=== PATIENT | male | born 1980 | race Caucasian/White ===

== ENCOUNTER 2017-10-06 04:33 | Emergency (ER) | payer OTHER ==
--- NOTE | 2017-10-06 04:39 | ED Physician Documentation ---
PD HPI ABD PAIN - Stated complaint Stated Complaint: ABDOMINAL PAIN - History obtained from History obtained from: Patient - History of Present Illness Timing - onset: Enter time (22:00), Last night Timing - details: Abrupt onset, Waxing and waning Quality: Pain Location: Other (right mid-level back) Radiation: Right flank Improved by: Other (no ameliorating factors) Worsened by: Other (no exacerbating factors) Associated symptoms: No: Fever, Nausea, Vomiting, Diarrhea, Constipation Similar symptoms before: Diagnosis (similar to previous diverticulitis as well as renal colic) Recently seen: Not recently seen Review of Systems Constitutional: reports: Reviewed and negative Cardiac: reports: Reviewed and negative Respiratory: reports: Reviewed and negative GI: reports: Abdominal Pain. denies: Nausea, Vomiting : denies: Dysuria, Frequency, Hematuria Musculoskeletal: reports: Back pain PD PAST MEDICAL HISTORY - Past Medical History Cardiovascular: None Respiratory: None Endocrine/Autoimmune: None GI: Diverticulitis : Kidney stones HEENT: None Psych: Anxiety Musculoskeletal: None Derm: None - Past Surgical History Past Surgical History: Yes Ortho: Other - Present Medications Home Medications: Ambulatory Orders Medication Instructions Recorded Confirmed Tamsulosin [Flomax] 0.4 mg PO DAILY #7 capsule 10/06/17 oxyCODONE/ACET 5/325 [Percocet 5 1 - 2 each PO Q6H PRN #20 tablet 10/06/17 mg/325 mg] - Allergies Allergies/Adverse Reactions: Allergies Allergy/AdvReac Type Severity Reaction Status Date / Time No Known Drug Allergies Allergy Verified 10/06/17 04:51 - Social History Does the pt smoke?: No Smoking Status: Never smoker Does the pt have substance abuse?: No PD ED PE NORMAL - Vitals Vital signs reviewed: Yes - General General: Alert and oriented X 3, Well developed/nourished, Other (obvious painful distress with fluctuating intensity) - HEENT HEENT: Moist mucous membranes - Cardiac Cardiac: RRR, No murmur - Respiratory Respiratory: No respiratory distress, Clear bilaterally - Abdomen Abdomen: Soft, Non tender - Back Back: No CVA TTP - Derm Derm: Normal color, Warm and dry, No rash Results - Vitals Vitals: Vital Signs - 24 hr 10/06/17 10/06/17 10/06/17 04:35 05:18 06:05 Temperature 36.2 C L Heart Rate 71 61 73 Respiratory 24 16 18 Rate Blood Pressure 152/116 H 128/81 H 125/95 H O2 Saturation 99 99 99 10/06/17 10/06/17 10/06/17 06:25 06:40 07:41 Temperature Heart Rate 58 L 88 68 Respiratory 16 16 18 Rate Blood Pressure 125/95 H 145/99 H 128/90 H O2 Saturation 97 89 L 96 Oxygen O2 Source Room air Oxygen Flow Rate 2 - Labs Labs: Laboratory Tests 10/06/17 10/06/17 04:45 04:45 WBC 7.9 RBC 5.33 Hgb 15.1 Hct 45.5 MCV 85.3 MCH 28.3 MCHC 33.2 RDW 13.0 Plt Count 306 MPV 7.1 L Neut # 4.4 Lymph # 2.7 Weber # 0.6 Eos # 0.2 Baso # 0.1 Absolute Nucleated RBC 0.00 Nucleated RBC % 0.0 Sodium 137 Potassium 3.9 Chloride 102 Carbon Dioxide 26 Anion Gap 9.0 BUN 12 Creatinine 1.0 Estimated GFR (MDRD) 85 L Glucose 128 H Calcium 9.3 Total Bilirubin 0.4 AST 26 ALT 36 Alkaline Phosphatase 72 Total Protein 7.9 Albumin 4.6 Globulin 3.3 Albumin/Globulin Ratio 1.4 Lipase 19 L - Rads (name of study) CT A/P Radiology: Prelim report reviewed, See rad report PD MEDICAL DECISION MAKING - ED course Complexity details: reviewed results, re-evaluated patient, considered differential, d/w patient Departure - Departure Disposition: 01 Home, Self Care Clinical Impression: Renal colic Condition: Good Instructions: ED Stone Renal W Colic Follow-Up: Onelia Mann PA-C [Primary Care Provider] - (Call today to arrange for next available appointment. When you call, explain that you have been diagnosed with a kidney stone and ask if your doctor prefers to evaluate you or refer you to a urologist) Prescriptions: oxyCODONE/ACET 5/325 [Percocet 5 mg/325 mg] 1 - 2 each PO Q6H PRN #20 tablet PRN Reason: Pain Tamsulosin [Flomax] 0.4 mg PO DAILY #7 capsule Comments: In addition to the prescribed pain medication (oxycodone/acetaminophen), you can try pyridium and ibuprofen. Pyridium can help with some of the milder symptoms associated with a kidney stone. It usually turns the urine an orange color; this is normal. Ibuprofen is an anti-inflammatory (brand names include Advil and Motrin). You should use the ibuprofen if the oxycodone alone is not providing adequate pain relief. Do not take tylenol or any acetaminophen- containing products with the prescribed oxycodone/acetaminophen. Use the strainer to strain your urine until you follow-up or until you catch a stone. Forms: Activity restrictions Discharge Date/Time: 10/06/17 07:53
[2017-10-06] MEDS ORDERED: HYDROmorphone 1 MG/ML SYRINGE IVP STA ×2 (04:55→06:07)
[2017-10-06] MEDS ORDERED: ONDANSETRON 4 MG/2 ML VIAL IVP STA (04:55)
[2017-10-06] MEDS ORDERED: KETOROLAC 60 MG/2 ML VIAL IVP STA (04:57)
[2017-10-06 05:01] LABS: BASOPHILS # (AUTO) 0.1 10^3/uL (0.0-0.1); BASOPHILS % (AUTO) 0.8 %; EOSINOPHILS # (AUTO) 0.2 10^3/uL (0.0-0.7); EOSINOPHILS % (AUTO) 2.1 %; HGB - HEMOGLOBIN 15.1 g/dL (14.0-18.0); LYMPHOCYTES # (AUTO) 2.7 10^3/uL (1.5-3.5); LYMPHOCYTES % (AUTO) 34.2 %; MEAN CORPUSCULAR HEMOGLOBIN 28.3 pg (27.0-31.0); MEAN CORPUSCULAR HGB CONC 33.2 g/dL (32.0-36.0); MEAN CORPUSCULAR VOLUME 85.3 fL (80.0-94.0); MEAN PLATELET VOLUME 7.1 fL (7.4-11.4); MONOCYTES # (AUTO) 0.6 10^3/uL (0.0-1.0); NEUTROPHILS # (AUTO) 4.4 10^3/uL (1.5-6.6); NEUTROPHILS % (AUTO) 54.9 %; PLT - PLATELET COUNT 306 10^3/uL (130-450); RED BLOOD COUNT 5.33 10^6/uL (4.70-6.10); WHITE BLOOD COUNT 7.9 x10^3/uL (4.8-10.8)
[2017-10-06 05:14] LABS: ALBUMIN 4.6 g/dL (3.2-5.5); ALBUMIN/GLOBULIN RATIO 1.4 (1.0-2.2); BILIRUBIN,TOTAL 0.4 mg/dL (0.2-1.0); CALCIUM 9.3 mg/dL (8.5-10.3); TOTAL PROTEIN 7.9 g/dL (6.7-8.2)
--- NOTE | 2017-10-06 05:28 | CT Report ---
EXAM: CT ABDOMEN AND PELVIS (CT KUB) EXAM DATE: 10/06/2017 05:19 AM. CLINICAL HISTORY: Right flank pain. COMPARISONS: 11/18/2015. TECHNIQUE: Routine axial helical CT imaging was performed through the abdomen and pelvis without IV c ontrast. Reconstructions: Coronal and sagittal. In accordance with CT protocol optimization, one or more of the following dose reduction techniques w ere utilized for this exam: automated exposure control, adjustment of mA and/or KV based on patient s ize, or use of iterative reconstructive technique. FINDINGS: Lung Bases: Unremarkable. Right Kidney/Ureter: No stones are seen in the kidney. Mildly obstructing 4 x 3 mm stone in the dista l ureter at the level of the sciatic notch, series 3 image 138. Left Kidney/Ureter: No stones, hydronephrosis, or hydroureter. No perinephric fat stranding. Other Solid Organs: Fatty liver. Splenomegaly measuring 15.8 cm. Pancreas and adrenals show no focal abnormalities on this noncontrast examination. Gallbladder/Bile Ducts: Unremarkable. Peritoneal Cavity: Colonic diverticula without evidence of diverticulitis. No bowel obstruction seen. No free air or free fluid. Normal-sized mesenteric and retroperitoneal lymph nodes. Appendix is retr ocecal and appears normal. Pelvic Organs: No bladder stones or wall thickening. Noncontrast images of the visualized pelvic orga ns are unremarkable. Vasculature: Unremarkable. Other: None. IMPRESSION: 1. Mildly obstructing 4 x 3 mm stone in the distal right ureter at the level of the sciatic notch. 2. Fatty liver and mild splenomegaly. [facility] Referring Provider Line: [phone] SITE ID: [id number]
--- NOTE | 2017-10-06 05:28 | CT Preliminary Report ---
Exam: CT ABDOMEN/PELVIS W/O IMPRESSION: 1. Mildly obstructing 4 x 3 mm stone in the distal right ureter at the level of the sciatic notch. 2. Fatty liver and mild splenomegaly. [facility] SITE ID: [id number]
[2017-10-06] MEDS ORDERED: TAMSULOSIN 0.4 MG CAPSULE PO STA (06:08)
[2017-10-06] MEDS ORDERED: oxyCODONE/ACET 5/325 Prepack 4 PO STA (07:26)
[2017-10-06 07:43] VITALS: BP 128/90
== END 2017-10-06 07:53 | disposition home or self-care (01) ==
LOC: ED 04:33
DX: N20.1 Calculus of ureter (principal)
CPT/HCPCS: 36415; 74176; 80053; 83690; 85025; 96374; 96375; 96376; 99284; A9270; J1170

== ENCOUNTER 2021-05-20 08:00 | Outpatient (CLI) | payer OTHER | END 2021-05-20 23:59 | disposition home or self-care (01) | LOC: LAB.N 08:00 | PROVIDERS: ATTEND Nurse Practitioner | DX: B34.9 Viral infection, unspecified (principal); Z20.822 Contact with and (suspected) exposure to COVID-19 | CPT/HCPCS: 87070 ==

== ENCOUNTER 2021-08-20 10:56 | Outpatient (CLI) | payer OTHER ==
--- NOTE | 2021-08-20 16:23 | XRAY Report ---
PROCEDURE: Knee 2 View LT INDICATIONS: L KNEE PX TECHNIQUE: 2 views of the left knee(s) were acquired. COMPARISON: None. FINDINGS: Bones: No fractures or dislocations. No suspicious bony lesions. Soft tissues: Mild joint effusion. No suspicious soft tissue calcifications. IMPRESSION: Mild effusion. No visualized acute fracture or dislocation. However, occult injury canno t be excluded. Recommend short interval imaging follow-up in 7-10 days as clinically indicated for ad ditional evaluation. Reviewed by: Evita Mon MD on 08/20/2021 4:21 PM PST Approved by: Evita Mon MD on 08/20/2021 4:21 PM PST Station ID: [id number]
== END 2021-08-20 23:59 | disposition home or self-care (01) ==
LOC: DI.N 10:56
PROVIDERS: ATTEND Nurse Practitioner
DX: M25.562 Pain in left knee (principal); M25.462 Effusion, left knee

== ENCOUNTER 2021-11-02 08:41 | Emergency (ER) | payer OTHER ==
[2021-11-02 09:22] LABS: BASOPHILS # (AUTO) 0.1 10^3/uL (0.0-0.1); BASOPHILS % (AUTO) 0.4 %; EOSINOPHILS # (AUTO) 0.1 10^3/uL (0.0-0.7); EOSINOPHILS % (AUTO) 0.4 %; HCT - HEMATOCRIT 47.2 % (42.0-52.0); HGB - HEMOGLOBIN 15.9 g/dL (14.0-18.0); LYMPHOCYTES # (AUTO) 2.2 10^3/uL (1.5-3.5); LYMPHOCYTES % (AUTO) 17.5 %; MEAN CORPUSCULAR HEMOGLOBIN 29.1 pg (27.0-31.0); MEAN CORPUSCULAR HGB CONC 33.7 g/dL (32.0-36.0); MEAN CORPUSCULAR VOLUME 86.3 fL (80.0-94.0); MEAN PLATELET VOLUME 8.8 fL (7.4-11.4); MONOCYTES # (AUTO) 1.2 10^3/uL (0.0-1.0); MONOCYTES % (AUTO) 9.6 %; NEUTROPHILS # (AUTO) 8.8 10^3/uL (1.5-6.6); NEUTROPHILS % (AUTO) 71.9 %; PLT - PLATELET COUNT 307 10^3/uL (130-450); RED BLOOD COUNT 5.47 10^6/uL (4.70-6.10); RED CELL DISTRIBUTION WIDTH 13.2 % (12.0-15.0); WHITE BLOOD COUNT 12.3 x10^3/uL (4.8-10.8)
[2021-11-02 09:35] LABS: ALBUMIN 4.6 g/dL (3.2-5.5); ALBUMIN/GLOBULIN RATIO 1.2 (1.0-2.2); BILIRUBIN,TOTAL 1.8 mg/dL (0.2-1.0); CALCIUM 9.3 mg/dL (8.5-10.3); CREATININE 1.2 mg/dL (0.6-1.2); POTASSIUM 3.8 mmol/L (3.5-5.0); TOTAL PROTEIN 8.5 g/dL (6.7-8.2)
--- NOTE | 2021-11-02 10:07 | ED Physician Documentation ---
PD HPI ABD PAIN - Stated complaint Stated Complaint: BLOOD IN STOOL - Chief complaint Chief Complaint: Abd Pain - History obtained from History obtained from: Patient - History of Present Illness Timing - onset: Yesterday Timing - duration: Days (1-2) Timing - details: Abrupt onset, Still present Quality: Cramping, Aching, Pain Location: LLQ Radiation: No: Chest, Left flank Worsened by: Eating Associated symptoms: Nausea, Diarrhea (loose stool with some blood and muscous.). No: Vomiting, Constipation Similar symptoms before: Diagnosis (He has had a few episodes of diverticulitis in the past with similar symptoms and location. He had not had the blood in the past.) Recently seen: Not recently seen Review of Systems Constitutional: reports: Chills, Myalgias. denies: Fever Nose: denies: Rhinorrhea / runny nose, Congestion Throat: denies: Sore throat Respiratory: denies: Cough GI: reports: Abdominal Pain, Nausea, Diarrhea (with some blood and mucous the past day.). denies: Vomiting, Constipation : denies: Dysuria, Frequency Neurologic: reports: Generalized weakness. denies: Near syncope, Altered mental status, Headache PD PAST MEDICAL HISTORY - Past Medical History Past Medical History: Yes Cardiovascular: None Respiratory: None Neuro: None Endocrine/Autoimmune: None GI: Diverticulitis : Kidney stones HEENT: None Psych: Anxiety Musculoskeletal: None Derm: None - Past Surgical History Past Surgical History: Yes Ortho: Other - Present Medications Home Medications: Ambulatory Orders Medication Instructions Recorded Confirmed HYDROcod/ACETAM 5/325 [[place] 5/325] 1 ea PO Q6H PRN #10 tablet 11/02/21 Ibuprofen [Motrin] 600 mg PO TID PRN #20 tab 11/02/21 Ondansetron Odt [Zofran] 4 mg TL Q6H PRN #10 tablet 11/02/21 cephALEXin [Keflex] 500 mg PO TID 5 Days #15 cap 11/02/21 metroNIDAZOLE [Flagyl] 250 mg PO TID 5 Days #15 tablet 11/02/21 - Allergies Allergies/Adverse Reactions: Allergies Allergy/AdvReac Type Severity Reaction Status Date / Time No Known Drug Allergies Allergy Verified 11/02/21 08:57 - Social History Does the pt smoke?: No Smoking Status: Never smoker Does the pt drink ETOH?: Yes Does the pt have substance abuse?: No - Immunizations Immunizations are current?: Yes - POLST Patient has POLST: No PD ED PE NORMAL - Vitals Vital signs reviewed: Yes - General General: Alert and oriented X 3, Well developed/nourished - HEENT HEENT: Pharynx benign. No: Moist mucous membranes - Neck Neck: Supple, no meningeal sign, No adenopathy - Cardiac Cardiac: No murmur. No: RRR (regular but mild tachycardia. ) - Respiratory Respiratory: Clear bilaterally - Abdomen Abdomen: Normal bowel sounds, Soft, Non distended, No organomegaly, Other (Obese truncally. There is tenderness in the left lower quadrant area locally with some mild local guarding. No percussion or rebound tenderness. The rest the abdomen is nontender. Mild referred tenderness to the left lower quadrant from the periumbilical. No inguinal adenopathy.) - Back Back: No CVA TTP - Derm Derm: Normal color, Warm and dry - Extremities Extremities: Normal ROM s pain, No edema, No calf tenderness / cord Results - Vitals Vitals: Vital Signs - 24 hr 11/02/21 11/02/21 11/02/21 08:58 10:02 10:34 Temperature 37.2 C Heart Rate 104 H 87 86 Respiratory 18 18 16 Rate Blood Pressure 149/116 H 132/85 H 128/93 H O2 Saturation 94 98 97 11/02/21 11/02/21 11:30 12:25 Temperature 37.4 C Heart Rate 79 73 Respiratory 16 16 Rate Blood Pressure 130/89 H 127/76 O2 Saturation 98 99 Oxygen O2 Source Room air - Labs Labs: Laboratory Tests 11/02/21 11/02/21 09:15 09:15 WBC 12.3 H RBC 5.47 Hgb 15.9 Hct 47.2 MCV 86.3 MCH 29.1 MCHC 33.7 RDW 13.2 Plt Count 307 MPV 8.8 Neut # (Auto) 8.8 H Lymph # (Auto) 2.2 [place] # (Auto) 1.2 H Eos # (Auto) 0.1 Baso # (Auto) 0.1 Absolute Nucleated RBC 0.00 Nucleated RBC % 0.0 Sodium 137 Potassium 3.8 Chloride 101 Carbon Dioxide 23 Anion Gap 13.0 BUN 16 Creatinine 1.2 Estimated GFR (MDRD) 67 L Glucose 107 H Calcium 9.3 Total Bilirubin 1.8 H AST 18 ALT 26 Alkaline Phosphatase 77 Total Protein 8.5 H Albumin 4.6 Globulin 3.9 Albumin/Globulin Ratio 1.2 Lipase 29 PD MEDICAL DECISION MAKING - ED course Complexity details: reviewed results, re-evaluated patient (he is feeling improved with IV fluids and meds. ), considered differential (Left lower abdominal pain for 2 to 3 days with some bloody mucus stool. He states feeling like prior episodes of diverticulitis. Shared agreement to treat empirically without imaging. Low suspicion for complicated diverticulitis.), d/w patient Departure - Departure Disposition: 01 Home, Self Care Clinical Impression: Diverticulitis Qualifiers: Diverticulitis site: unspecified part of intestinal tract Diverticulitis bleeding: with bleeding Diverticulitis complication: without perforation or abscess Qualified Code(s): K57.93 - Diverticulitis of intestine, part unspecified, without perforation or abscess with bleeding Abdominal pain Qualifiers: Abdominal location: left lower quadrant Qualified Code(s): R10.32 - Left lower quadrant pain Condition: Stable Record reviewed to determine appropriate education?: Yes Instructions: ED Diverticulitis Prescriptions: metroNIDAZOLE [Flagyl] 250 mg PO TID 5 Days #15 tablet cephALEXin [Keflex] 500 mg PO TID 5 Days #15 cap Ibuprofen [Motrin] 600 mg PO TID PRN #20 tab PRN Reason: Pain HYDROcod/ACETAM 5/325 [[place] 5/325] 1 ea PO Q6H PRN #10 tablet PRN Reason: Pain Ondansetron Odt [Zofran] 4 mg TL Q6H PRN #10 tablet PRN Reason: Nausea / Vomiting Comments: There is seems consistent with uncomplicated diverticulitis. Its not too unusual to have some blood and mucus in the stool related to the colitis/diverticulitis. Your blood count is good without any signs of anemia. We will treat this as diverticulitis with cephalexin and metronidazole antibiotics 3 times daily for 5 days. Also ibuprofen anti-inflammatory 3 times daily for 5 days. Use ondansetron if needed for nausea every 4-6 hours. Add in Tylenol every 4-6 hours if needed for pain or hydrocodone if needed for worse pain. These would all be intended short-term. I would anticipate improvement over the next 2 to 3 days. Return if not improved or if worsening symptoms. I transmitted your prescriptions to [facility] pharmacy in [place]. I am prescribing a short course of narcotic pain medication for you. These are potentially dangerous and addictive medications that should be used carefully. These medications may constipate you. Take an [id number] stool softener such as docusate twice daily with plenty of water while taking these medications. If you go 24 hours without a bowel movement, take [id number] MiraLAX, per package instructions. Do not drink or drive while taking these medications. If you received narcotic or sedating medications while in the emergency department do not drive for 24 hours. Store this medication in a safe, secure place and out of reach of children. It is a violation of federal law to give or sell this medication to another person or to use in a manner other than prescribed. The ED will not refill narcotic prescriptions, including prescriptions lost or stolen. You can dispose of unwanted medications at the [facility]'s office or at several pharmacies such as [facility]. Discharge Date/Time: 11/02/21 12:37
[2021-11-02] MEDS: SODIUM CHLORIDE 0.9% 1,000 ML IV STA (10:18)
[2021-11-02] MEDS: cefTRIAXone 1 GM VIAL IVP STA (11:29)
[2021-11-02] MEDS: metroNIDAZOLE 500 MG/100 ML 500 MG/100 ML BAG IV ONE (11:29)
[2021-11-02] MEDS: ONDANSETRON 4 MG/2 ML VIAL IVP STA (11:29)
[2021-11-02] MEDS: KETOROLAC 30 MG/ML VIAL IVP STA (11:29)
[2021-11-02 12:26] VITALS: BP 127/76
== END 2021-11-02 12:37 | disposition home or self-care (01) ==
LOC: ED 08:41
DX: K57.93 Diverticulitis of intestine, part unspecified, without perforation or abscess with bleeding (principal)
CPT/HCPCS: 36415; 80053; 83690; 85025; 96361; 96365; 96375; 99284

== ENCOUNTER 2022-09-11 09:15 | Outpatient (CLI) | payer OTHER ==
[2022-09-11 09:54] VITALS: BP 142/82
--- NOTE | 2022-09-11 09:54 | SLEEP CARE CONSULTATION ---
Information from patient questionnaire entered by Sharon Ortiz. I have reviewed and concur with the information entered by Sharon Ortiz. This document represents the service I personally performed and the decisions made by me, Tori Moseley ARNP. History of Present Illness Service Date and Time: 09/11/2022914 Reason for Visit: New patient Chief Complaint: reports: Unrefreshed sleep, Snoring, Excessive daytime sleepiness, Observed pauses in breathing, Fatigue, Frequent awakenings at night Date of Onset: as long as can remember has snored, 5-10 yrs for occasional gasping Usual bedtime: changing schedule at work; 8-9 pm recently; changing to 12 AM Time it takes to fall asleep: 10-30MIN Snores at night: Yes Observed to quit breathing while asleep: Yes Number of times waking at night: 1-4 Reasons for waking at night: reports: Gasping for air, Bathroom, Other (UNKNOWN REASONS ). denies: Choking, Snoring Toss, Turn, or Twitch while sleeping: Yes Recalls having dreams: Yes Usually gets out of bed at: 0800 Feels refreshed in the morning: No Morning headache: No Sleepy or fatigued during the day: Yes (wakes up toward the afternoon) Ever fallen asleep while driving: No Takes day naps: Yes (not very often) Dreams during day naps: Yes Prior sleep studies: No Additional HPI information: I had the pleasure of seeing AMY RUDOLPH II today regarding the possibility of him having a sleep disorder. His current complaints are excessive daytime sleepiness, fatigue, frequent night awakenings, observed paused in breathing, snoring and unrefreshed sleep. He saw an ENT who recommended he get tested. He states he knows he has loud snoring and has woke up gasping for air. He states he only sometimes will wake up feeling rested. He is tired throughout the day but feels he wakes up more in the afternoon. He tells me that he has a changing schedule. He was going to bed about 8-9 PM for last few months at work and as of today will go back to 12 midnight as his bedtime. - Parasomnia Symptoms Ever been unable to move upon waking from sleep: No Walks in sleep: No Talks in sleep: Yes (?frequency) Ever acted out dreams in sleep: No Ever felt weak in the knees when startled or emotional: No Bothered by creepy, crawly, restless sensations in legs: No Problems with memory or concentration: Yes (forget things but thinks this is normal) Subjective Initial [place] Sleepiness Scale score: 9 (08/16/22) Past Medical History Past Medical History: reports: Other (knee surgery for torn cartilage 20 yrs ago) Social History The patient's occupation is a [employer]. Patient is Single and lives in [place]. Have you smoked in the past 12 months: No Alcohol use: Yes Alcohol amount and frequency: 1-2 WEEKLY-MONTHLY Caffeine use: Yes Caffeine amount and frequency: 200-400MG DAILY Family History Family history of sleep disordered breathing: Yes Family Hx Sleep Apnea: Mother: Snoring Allergies and Home Medications Known drug allergies: No Drug allergies reviewed: Yes (NKDA) Home medication list reviewed: Yes Allergy and home medication list: Medications: OTC Maryann Review of Systems Weight gain over past 5 years: 50 Cardiovascular: denies: high blood pressure Respiratory: reports: chronic cough (from sinus congestion). denies: shortness of breath Gastrointestinal: reports: difficulty swallowing Neurological: denies: headaches, head trauma Psychiatric: denies: anxiety, depression Ear/Nose/Throat: reports: nasal congestion, nose bleeds, wisdom teeth removed. denies: tonsillectomy Endocrine: denies: thyroid disease Musculoskeletal: reports: joint pain Immunologic: reports: allergies to food or environment (year round) Physical Exam Vital signs obtained and entered by: SHARON Denny MA Blood Pressure: 142/82 (LEFT ARM) Cuff size: long (LEFT A) Heart Rate: 86 O2 Saturation: 96 Height: 5 ft 10 in Weight: 350 lb 3.2 oz Weight change since last visit: ` Body Mass Index: 50.2 BMI Classification: Morbidly Obese Neck circumference: 19.75 Mouth and throat: narrow oropharynx Soft palate: long Hard palate: normal Uvula: normal Uvula visualization: 25% Mallampati Class III Tongue: normal in size Tonsils: 2+ Neck: normal w/o lymphadenopathy or thyromegaly Heart: regular rate and rhythm Lungs: clear bilaterally Impression and Plan 1. Suspected Obstructive Sleep Apnea-Hypopnea Syndrome, as suggested by a history of loud and irregular snoring, observed cessation of breath while asleep, gasping or choking in sleep, frequent awakening during the night, unrefreshed sleep, cognitive impairment, and excessive daytime sleepiness. Narro w oropharynx and obesity are common predisposing factors for obstructive sleep apnea-hypopnea syndrome. I recommend proceeding to polysomnography to confirm the diagnosis and to assess severity. If the patient has significant sleep disordered breathing, a manual CPAP titration study will also be performed to find the optimal treatment pressure. I informed the patient of what the sleep studies involve and after some discussion, obtained agreement to proceed. The pathophysiology of obstructive sleep apnea-hypopnea syndrome was discussed with the patient and health risks of cardiovascular and cerebrovascular disease if not treated. Risks of drowsy driving discussed in detail and patient advised to avoid long distance driving and to trap puller at the first sign of drowsiness. Patient agreed to plan. * Schedule polysomnography * Avoid long distance driving or driving when feeling sleepy. * Avoid alcohol, sedative and muscle relaxant around bedtime. * Attempt to lose weight. * Review instructions provided by trained office staff on how to prepare for the sleep study. * Return for follow-up after sleep study completed. Counseling Topics: Weight loss health impact Visit Type: In Office Time Spent with Patient (minutes): 30 Provider Statement: I spent 100% of the Face to Face Visit with the patient with greater than 50% spent counseling the patient and coordination of care.
== END 2022-09-11 09:16 | disposition home or self-care (01) ==
LOC: SC 09:15
PROVIDERS: ATTEND Nurse Practitioner Family
DX: G47.10 Hypersomnia, unspecified (principal); R53.83 Other fatigue; G47.8 Other sleep disorders; R06.83 Snoring; R06.81 Apnea, not elsewhere classified; E66.01 Morbid (severe) obesity due to excess calories; Z68.43 Body mass index [BMI] 50.0-59.9, adult
CPT/HCPCS: 99203; 99212

== ENCOUNTER 2022-10-06 08:26 | Outpatient (CLI) | payer OTHER | END 2022-10-06 08:27 | disposition home or self-care (01) | LOC: SC 08:26 | PROVIDERS: ATTEND Nurse Practitioner Family | DX: G47.33 Obstructive sleep apnea (adult) (pediatric) (principal); R09.02 Hypoxemia; E66.01 Morbid (severe) obesity due to excess calories; Z68.43 Body mass index [BMI] 50.0-59.9, adult | CPT/HCPCS: 95806 ==

== ENCOUNTER 2022-10-17 08:24 | Outpatient (CLI) | payer OTHER ==
[2022-10-17 08:55] VITALS: BP 158/100
--- NOTE | 2022-10-17 08:55 | SLEEP CARE CONSULTATION ---
Information from patient questionnaire entered by Sharon Ortiz. I have reviewed and concur with the information entered by Sharon Ortiz. This document represents the service I personally performed and the decisions made by , Tori Moseley ARNP. History of Present Illness Service Date and Time: 10/17/2022823 Initial [place] Sleepiness Scale score: 9 (08/16/22) Current [place] Sleepiness Scale score: 4 (10/17/22) Additional HPI information: AMY RUDOLPH II returns for follow up and results of the recently performed home sleep study. I explained the pathophysiology behind obstructive sleep apnea. We then spent quite a bit of time discussing different treatment options. For mild obstructive sleep apnea, surgery and oral appliance are alternatives to nasal CPAP therapy but in moderate or severe cases, nasal CPAP is the most effective and reliable treatment. Because apnea is primarily in supine position, then positional management therapy could be effective. Methods discussed such as positioning with pillows to prevent supine sleep. I reviewed the impact of weight changes on sleep apnea and strongly recommended losing weight. After some discussion, the patient opted to go with the nasal CPAP therapy. Nasal autoCPAP set at 4-15 cmH20 will be ordered with rationale explained. A manual titration study will be ordered if unable to find optimal pressure with office adjustments. I explained how CPAP machine works and what to expect when using the machine. Using CPAP every night in order to get used to it was emphasized. Patient advised to put CPAP mask on before getting into bed so as not to fall asleep without CPAP. To assist acclimation to CPAP use, it could also be used for a short time during day while reading or watching TV. The patient was instructed to call the CPAP supplier to discuss any mechanical problem that may occur. If the mask given is uncomfortable or is difficult to keep on through the night even with adjustment, contact the CPAP supplier as many will replace with another mask style if notified before 30 days. If snoring or perceives is not getting enough air or too much air from the machine, notify this office. Patient counseled not drink alcohol less than 4 hours before bedtime as it can increase snoring and apnea. Patient was cautioned about risks of drowsy driving until sleepiness symptoms resolve. Patient denies drowsy driving. Sleep Study - Results Type of Sleep Study: Home sleep study (COMPLETED 10/06/22) Prior sleep studies: No Polysomnography/Home Sleep Study results: Physician Impression: The quality of the study is good. The length of the study is adequate (> 240 minutes). Please also see the tabulated and graphic data. 1. Obstructive Sleep Apnea-Hypopnea (ICD-10 G47.33), severe, with an AHI of 52.5/hr and mitesh SaO2 of 81%. During the study, the patient had 356 apneas (356 obstructive, 0 central, 0 mixed) and 75 hypopneas. The longest episode lasted 109.5 seconds. The respiratory events occurred more frequently during supine sleep (supine AHI was 93.7 and non-supine, 34.49). 2. Hypoxemia (ICD-10 R09.02), mild, with the lowest oxygen saturation of 81 % and 22.1 minutes with SaO2 under 90%. Baseline oxygen saturation was normal (Average oxygen saturation was 93%). Allergies and Home Medications Known drug allergies: No Drug allergies reviewed: Yes Home medication list reviewed: Yes (no changes) Review of Systems Review of systems same as previous: Yes (no changes) Physical Exam Vital signs obtained and entered by: SHARON Denny MA Blood Pressure: 158/100 (LEFT ARM) Cuff size: long Heart Rate: 56 O2 Saturation: 98 Height: 5 ft 10 in Weight: 353 lb 9.6 oz Body Mass Index: 50.7 BMI Classification: Morbidly Obese Impression and Plan 1. Obstructive Sleep Apnea-Hypopnea Syndrome, severe, with lowest oxygen saturation of 81%. Obviously this is the cause of the patients symptoms of unrefreshed sleep, and excessive daytime sleepiness. As mentioned above, the patient will be started on nasal autoCPAP therapy with pressure set at 4-15 cmH2 O. A manual titration study will be completed if unable to find optimal treatment pressure with office adjustments. Compliance guidelines also reviewed. A copy of compliance guidelines will be given for reference at check out. Because the apnea is more severe supine, I instructed to avoid sleeping supine using pillow positioning until able to start CPAP use. 2. Hypoxemia, mild, with the lowest oxygen saturation of 81 % and 22.1 minutes with SaO2 under 90%. His baseline oxygen saturation was normal with an average oxygen saturation of 93%. * Nasal auto CPAP therapy, pressure at 4-15 cm H2O. * Attempt to lose weight. * Avoid alcohol consumption near bedtime. * Avoid supine sleep until using CPAP. * The patient is again cautioned about driving until sleepiness completely resolves. * Return one month after CPAP obtained. I will assess response to therapy and compliance at that time. Counseling Topics: Sleeping position, Weight loss health impact Prescriptions: Auto CPAP Visit Type: In Office Time Spent with Patient (minutes): 21 Provider Statement: I spent 100% of the Face to Face Visit with the patient with greater than 50% spent counseling the patient and coordination of care.
== END 2022-10-17 08:25 | disposition home or self-care (01) ==
LOC: SC 08:24
PROVIDERS: ATTEND Nurse Practitioner Family
DX: G47.33 Obstructive sleep apnea (adult) (pediatric) (principal); R09.02 Hypoxemia; E66.01 Morbid (severe) obesity due to excess calories; Z68.43 Body mass index [BMI] 50.0-59.9, adult
CPT/HCPCS: 99212; 99213

== ENCOUNTER 2022-12-12 09:27 | Outpatient (CLI) | payer OTHER ==
--- NOTE | 2022-12-12 09:52 | Sleep Patient Instructions ---
Sleep Center Visit Summary - Patient Visit Information Reason for Visit: First compliance followup for CPAP therapy - Patient Instructions Additional Instructions: You were here for follow up of CPAP therapy. You will be continued on CPAP therapy with pressure changed to 13-16 cmH2O. Please let me know if the pressure change is uncomfortable, so I can make further adjustments as needed. You should follow up with sleep care in 1-2 months. You may contact us sooner for any questions or concerns. - Clinic Information Contact: [facility] [address] [place] [address] [email or web address] T: [phone]
[2022-12-12 09:58] VITALS: BP 142/84
--- NOTE | 2022-12-12 09:59 | SLEEP CARE CONSULTATION ---
Information from patient questionnaire entered by Sharon Ortiz. I have reviewed and concur with the information entered by Sharon Ortiz. This document represents the service I personally performed and the decisions made by , Tori Moseley ARNP. History of Present Illness Service Date and Time: 12/12/2022926 Previous diagnosis: Severe, Obstructive Sleep Apnea-Hypopnea Syndrome AHI: 52.5 (in 2022) Reason for follow up: first compliance Equipment type: CPAP (Resmed Airsense 10, 10/2022) Equipment obtained from: Other ([facility]) Mask style: Nasal pillows Mask brand: Respironics ([employer]) Backup mask available: No (will keep old mask when replaced) Last cushion change: 2 weeks Prior sleep studies: No Type of Sleep Study: Home sleep study (COMPLETED 10/06/22) HPI additional information: AMY RUDOLPH II was diagnosed to have severe, AHI 52.5, obstructive sleep apnea-hypopnea syndrome and returned today for CPAP therapy first compliance follow-up. Sleep Study - Results Type of Sleep Study: Home sleep study (COMPLETED 10/06/22) Prior sleep studies: No CPAP Compliance Data - Data Reviewed with Patient Average duration of nightly device use: 6 HRS 34 MINS Compliance rate %: 87 (11/11/22-12/10/22; 26/30 days used) Current pressure setting (cmH2O): 4-15 (median 10.1, avg 13.0, max 14.6) Average residual AHI: 4.6 Central apnea: 0.3 Obstructive apnea: 3.9 Average large leak: 3.4 L/min Subjective Patient concerns: reports: nasal congestion. denies: aerophagia, mask discomfort, air blowing in eyes, mask leak noise, condensation in mask/hose, dry mouth, nose, throat, epistaxis Observed to snore while using device: No Current pressure setting perceived as: comfortable On therapy, patient: reports: awakening more refreshed (not always), other (feels sleep is as interrupted). denies: drowsiness while driving Initial [place] Sleepiness Scale score: 9 (08/16/22) Current [place] Sleepiness Scale score: 2 (12/12/22) Allergies and Home Medications Known drug allergies: No Drug allergies reviewed: Yes Home medication list reviewed: Yes (no changes) Allergy and home medication list: Allergies No Known Drug Allergies Allergy (Verified 12/11/22 13:10) Review of Systems Review of systems same as previous: Yes (no changes) Physical Exam Vital signs obtained and entered by: SHARON Denny MA Blood Pressure: 142/84 (LEFT ARM) Cuff size: long Heart Rate: 95 O2 Saturation: 96 Height: 5 ft 10 in Weight: 353 lb 3.2 oz Body Mass Index: 50.6 BMI Classification: Morbidly Obese Impression and Plan 1. Obstructive Sleep Apnea-Hypopnea Syndrome, severe, with good treatment compliance and good apnea control. Amy is still trying to get used to mask on his face. He feels it is interrupting his sleep about the same as before when he woke up with apnea. He is having some nasal congestion when laying down at night that is because of allergies. I advised him to use saline nasal spray prior to bedtime. He should keep his bed linens clean and take a shower before bedtime to rinse off allergens. He voiced understanding and agreement. The patients pressure will be changed to autoCPAP 13-16 cmH20 to reflect pressures being used. Patient advised to contact me if pressure change is uncomfortable so that it can be adjusted. Goals for apnea control discussed. Patient's apnea severity and rationale for treatment to reduce apnea, improve sleep quality and reduce cardiovascular and cerebrovascular events was reviewed. 2. Obesity, unspecified. Currently patients BMI is 50.6. Obesity increases the risk of apnea, CPAP pressure requirements and overall health risks especially cardiovascular and diabetes. Thus patient is advised to lose weight. * Change auto CPAP pressure to 13-16 cmH2O * Notify me if snoring with mask or feeling that the pressure is too much or too little * Attempt to lose weight * Call this office if any problems using CPAP * Return for follow up in 1-2 months, or sooner if concerns arise Counseling Topics: Spare mask, Weight loss health impact Visit Type: In Office Time Spent with Patient (minutes): 22 Provider Statement: I spent 100% of the Face to Face Visit with the patient with greater than 50% spent counseling the patient and coordination of care.
== END 2022-12-12 09:28 | disposition home or self-care (01) ==
LOC: SC 09:27
PROVIDERS: ATTEND Nurse Practitioner Family
DX: G47.33 Obstructive sleep apnea (adult) (pediatric) (principal); E66.01 Morbid (severe) obesity due to excess calories; Z68.43 Body mass index [BMI] 50.0-59.9, adult
CPT/HCPCS: 99212; 99213

== ENCOUNTER 2023-01-23 10:25 | Outpatient (CLI) | payer OTHER ==
--- NOTE | 2023-01-23 10:51 | SLEEP CARE CONSULTATION ---
Information from patient questionnaire entered by Sharon Ortiz. I have reviewed and concur with the information entered by Sharon Ortiz. This document represents the service I personally performed and the decisions made by , Tori Moseley ARNP. History of Present Illness Service Date and Time: 01/23/2023 1025 Previous diagnosis: Severe, Obstructive Sleep Apnea-Hypopnea Syndrome AHI: 52.5 (in 2022) Reason for follow up: one month (F/U) Equipment type: CPAP (Resmed Airsense 10, 10/2022) Equipment obtained from: Other ([facility]; getting supplies) Mask style: Nasal pillows Mask brand: Respironics ([employer]) Backup mask available: No (will keep old mask when replaced) Last cushion change: 3-4 weeks Prior sleep studies: No Type of Sleep Study: Home sleep study (COMPLETED 10/06/22) HPI additional information: AMY RUDOLPH II was diagnosed to have severe, AHI 52.5, obstructive sleep apnea-hypopnea syndrome and returned today for CPAP therapy one month follow-up. Sleep Study - Results Type of Sleep Study: Home sleep study (COMPLETED 10/06/22) Prior sleep studies: No CPAP Compliance Data - Data Reviewed with Patient Average duration of nightly device use: 6 hours 54 minutes Compliance rate %: 50 ( days used) Current pressure setting (cmH2O): 13-16 Average residual AHI: 2.5 Central apnea: 0.6 Obstructive apnea: 1.6 Subjective Missed days of use due to: reports: illness (chronic nasal congestion), other (took off for birthday week; too tired/lazy) Patient concerns: denies: aerophagia, mask discomfort, air blowing in eyes, mask leak noise, condensation in mask/hose, nasal congestion, dry mouth, nose, throat, epistaxis Observed to snore while using device: No Current pressure setting perceived as: comfortable On therapy, patient: reports: sleeping better, being more awake and alert during the day, more rested overall. denies: drowsiness while driving Initial [place] Sleepiness Scale score: 9 (08/16/22) Current [place] Sleepiness Scale score: 7 Allergies and Home Medications Known drug allergies: No Drug allergies reviewed: Yes Home medication list reviewed: Yes (no changes) Allergy and home medication list: Allergies No Known Drug Allergies Allergy (Verified 01/22/23 20:08) Review of Systems Review of systems same as previous: Yes (no changes) Physical Exam Vital signs obtained and entered by: Tori Buenrostro NP Blood Pressure: 131/80 (left arm) Cuff size: large Heart Rate: 85 O2 Saturation: 95 Height: 5 ft 10 in Weight: 354 lb 9.6 oz Body Mass Index: 50.8 BMI Classification: Morbidly Obese Impression and Plan 1. Obstructive Sleep Apnea-Hypopnea Syndrome, severe, with fair treatment compliance and good apnea control. On CPAP therapy, the patient has better sleep quality and is more rested overall. Patient states his compliance has fallen because he decided to not use it the week of his birthday. He states there is no reason other than not wanting to use it at other times. Compliance guidelines reviewed for insurance coverage. Patient was counseled on the difference between meeting compliance and optimal use of CPAP. Optimal use of C PAP is use of CPAP with all sleep to obtain maximum benefit of treatment. Patient is encouraged to use CPAP with all sleep. He voiced understanding. Patient has significant improvement of their sleep apnea and is satisfied with current CPAP therapy. Patient denies problems with oral dryness, nasal congestion, epistaxis, skin irritation or aerophagia. Patient's apnea severity and rationale for treatment to reduce apnea, improve sleep quality and reduce cardiovascular and cerebrovascular events was reviewed. 2. Obesity, unspecified. Currently patients BMI is 50.8. Obesity increases the risk of apnea, CPAP pressure requirements and overall health risks especially cardiovascular and diabetes. Thus patient is advised to lose weight. * Continue auto CPAP pressure at 13-16 cmH2O * Notify me if snoring with mask or feeling that the pressure is too much or too little * Attempt to lose weight * Call this office if any problems using CPAP * Return for follow up in 3 months, or sooner if concerns arise Counseling Topics: Spare mask, Weight loss health impact Visit Type: In Office Time Spent with Patient (minutes): 16 Provider Statement: I spent 100% of the Face to Face Visit with the patient with greater than 50% spent counseling the patient and coordination of care.
[2023-01-23 10:52] VITALS: BP 131/80
== END 2023-01-23 10:26 | disposition home or self-care (01) ==
LOC: SC 10:25
PROVIDERS: ATTEND Nurse Practitioner Family
DX: G47.33 Obstructive sleep apnea (adult) (pediatric) (principal); E66.01 Morbid (severe) obesity due to excess calories; Z68.43 Body mass index [BMI] 50.0-59.9, adult
CPT/HCPCS: 99212

== ENCOUNTER 2023-04-24 10:22 | Outpatient (CLI) | payer OTHER ==
--- NOTE | 2023-04-24 10:47 | Sleep Patient Instructions ---
Sleep Center Visit Summary - Patient Visit Information Reason for Visit: Three month followup for PAP therapy - Patient Instructions Additional Instructions: You were here for follow up of CPAP therapy. You will be continued on CPAP therapy with pressure at 13-16 cmH2O. Please continue to try to lose weight. You should follow up with sleep care in 12 months. You may contact us sooner for any questions or concerns. - Clinic Information Contact: [facility] [address] [place] [address] [email or web address] T: [phone]
--- NOTE | 2023-04-24 10:50 | SLEEP CARE CONSULTATION ---
Information from patient questionnaire entered by Prasad Ortiz. I have reviewed and concur with the information entered by Prasad Ortiz. This document represents the service I personally performed and the decisions made by , Tori Moseley ARNP. History of Present Illness Service Date and Time: 04/24/2023 1022 Previous diagnosis: Severe, Obstructive Sleep Apnea-Hypopnea Syndrome AHI: 52.5 (in 2022) Reason for follow up: three month (F/U) Equipment type: CPAP (Resmed Airsense 10, 10/2022) Equipment obtained from: Other ([facility]; getting supplies) Mask style: Nasal pillows Mask brand: Respironics ([employer]) Backup mask available: Yes (old mask) Last cushion change: few weeks Prior sleep studies: No Type of Sleep Study: Home sleep study (COMPLETED 10/06/22) HPI additional information: AMY RUDOLPH II was diagnosed to have severe, AHI 52.5, obstructive sleep apnea-hypopnea syndrome and returned today for CPAP therapy three month follow- up. Sleep Study - Results Type of Sleep Study: Home sleep study (COMPLETED 10/06/22) Prior sleep studies: No CPAP Compliance Data - Data Reviewed with Patient Average duration of nightly device use: 7 HRS 2 MINS Compliance rate %: 77 (01/23/23-04/22/23; 70/90 days used) Current pressure setting (cmH2O): 13-16 Average residual AHI: 2.7 Central apnea: 0.6 Obstructive apnea: 1.8 Hypopnea: 0.1 Average large leak: 0.8 L/min Subjective Missed days of use due to: reports: other (forget to put on) Patient concerns: reports: mask leak noise (occasional). denies: aerophagia, mask discomfort, air blowing in eyes, condensation in mask/hose, nasal congestion, dry mouth, nose, throat, epistaxis Observed to snore while using device: No Current pressure setting perceived as: comfortable On therapy, patient: reports: sleeping better, awakening more refreshed, being more awake and alert during the day, more rested overall. denies: drowsiness while driving Initial [place] Sleepiness Scale score: 9 (08/16/22) Current [place] Sleepiness Scale score: 4 (04/24/23) Allergies and Home Medications Known drug allergies: No Drug allergies reviewed: Yes Home medication list reviewed: Yes (no changes) Allergy and home medication list: Allergies No Known Drug Allergies Allergy (Verified 04/23/23 09:01) Review of Systems Review of systems same as previous: Yes (no changes) Physical Exam Vital signs obtained and entered by: PRASAD Denny MA Blood Pressure: 148/90 (LEFT ARM) Cuff size: long Heart Rate: 89 O2 Saturation: 97 Height: 5 ft 10 in Weight: 356 lb Weight change since last visit: 2 lb gain Body Mass Index: 51.0 BMI Classification: Morbidly Obese Impression and Plan 1. Obstructive Sleep Apnea-Hypopnea Syndrome, severe, with good treatment compliance and good apnea control. On CPAP therapy, the patient has better sleep quality and is more rested overall. Patient has been able to bring up his compliance from his last visit but continues to forget to put on his mask on at times. We discussed trying to make it more of a habit so he will forget less fr equently. He voiced understanding. Patient has significant improvement of their sleep apnea and is satisfied with current CPAP therapy. Patient denies problems with oral dryness, nasal congestion, epistaxis, skin irritation or aerophagia. We will follow-up with him next year. Patient's apnea severity and rationale for treatment to reduce apnea, improve sleep quality and reduce cardiovascular and cerebrovascular events was reviewed. 2. Obesity, unspecified. Currently patients BMI is 51. He is trying to eat better. Obesity increases the risk of apnea, CPAP pressure requirements and overall health risks especially cardiovascular and diabetes. Thus patient is advised to continue to try to lose weight. * Continue auto CPAP pressure at 13-16 cmH2O * Notify me if snoring with mask or feeling that the pressure is too much or too little * Attempt to lose weight * Call this office if any problems using CPAP * Return for follow up in 12 months, or sooner if concerns arise Counseling Topics: Spare mask, Weight loss health impact Visit Type: In Office Time Spent with Patient (minutes): 14 Provider Statement: I spent 100% of the Face to Face Visit with the patient with greater than 50% spent counseling the patient and coordination of care.
[2023-04-24 10:55] VITALS: BP 148/90; O2SAT 97
== END 2023-04-24 10:23 | disposition home or self-care (01) ==
LOC: SC 10:22
PROVIDERS: ATTEND Nurse Practitioner Family
DX: G47.33 Obstructive sleep apnea (adult) (pediatric) (principal); E66.01 Morbid (severe) obesity due to excess calories; Z68.43 Body mass index [BMI] 50.0-59.9, adult
CPT/HCPCS: 99212

== ENCOUNTER 2024-04-28 08:20 | Outpatient (CLI) | payer OTHER ==
--- NOTE | 2024-04-28 08:47 | Sleep Patient Instructions ---
Sleep Center Visit Summary - Patient Visit Information Reason for Visit: Annual follow up - Patient Instructions Additional Instructions: You will continue with CPAP therapy with pressure set at 13-16 cmH2O. A supply prescription will be updated with your DME supplier. We encourage you to continue to try to lose weight. Please follow up with the sleep care office in 1 year. - Clinic Information Contact: [facility] [address] [place] [address] [email or web address] T: [phone]
--- NOTE | 2024-04-28 08:52 | SLEEP CARE CONSULTATION ---
Information from patient questionnaire entered by Prasad Ortiz. I have reviewed and concur with the information entered by Prasad Ortiz. This document represents the service I personally performed and the decisions made by , Tori Moseley ARNP. History of Present Illness Service Date and Time: 04/28/2024 08 Previous diagnosis: Severe, Obstructive Sleep Apnea-Hypopnea Syndrome AHI: 52.5 (in 2022) Reason for follow up: annual Equipment type: CPAP (Resmed Airsense 10, s/u 10/2022) Equipment obtained from: Other ([facility]; getting supplies) Mask style: Nasal pillows Mask brand: Respironics ([employer]) Backup mask available: Yes Last cushion change: couple weeks Prior sleep studies: No Type of Sleep Study: Home sleep study (COMPLETED 10/06/22) HPI additional information: AMY RUDOLPH II was diagnosed to have severe, AHI 52.5, obstructive sleep apnea-hypopnea syndrome and returned today for CPAP therapy annual follow-up. Sleep Study - Results Type of Sleep Study: Home sleep study (COMPLETED 10/06/22) Prior sleep studies: No CPAP Compliance Data - Data Reviewed with Patient Average duration of nightly device use: 7 HRS 26 MINS Compliance rate %: 98 (10/29/23-04/25/24; 178/180 days used) Current pressure setting (cmH2O): 13-16 Average residual AHI: 1.8 Central apnea: 0.5 Obstructive apnea: 1.1 Hypopnea: 0.1 Average large leak: 0.2 L/min Subjective Missed days of use due to: reports: illness Patient concerns: reports: air blowing in eyes (occasional). denies: aerophagia, mask discomfort, mask leak noise, condensation in mask/hose, nasal congestion, dry mouth, nose, throat, epistaxis Observed to snore while using device: No Current pressure setting perceived as: comfortable On therapy, patient: reports: sleeping better, awakening more refreshed, being more awake and alert during the day, more rested overall. denies: drowsiness while driving Initial [place] Sleepiness Scale score: 9 (08/16/22) Current [place] Sleepiness Scale score: 6 Allergies and Home Medications Known drug allergies: No Drug allergies reviewed: Yes Home medication list reviewed: Yes (Cyclosporine) Allergy and home medication list: Allergies No Known Drug Allergies Allergy (Verified 04/28/24 08:25) Review of Systems Review of systems same as previous: No (DRY/RED EYE) Physical Exam Vital signs obtained and entered by: PRASAD Denny MA Blood Pressure: 153/98 (RIGHT ARM) Cuff size: long Heart Rate: 72 O2 Saturation: 94 Height: 5 ft 10 in Weight: 365 lb 3.2 oz Weight change since last visit: 11 lb gain Body Mass Index: 52.4 BMI Classification: Morbidly Obese Impression and Plan 1. Obstructive Sleep Apnea-Hypopnea Syndrome, severe, with god treatment compliance and good apnea control. On CPAP therapy, the patient has better sleep quality and is more rested overall. He has been having some issues with dry, red eyes since October. He is working with his eye doctor who has him using eye drops and ointments to reduce eye irritation. He has had some improvement. He does occasionally note some very mild deflective air from the mask leaking. I advised that he try a sleeping mask to protect his eyes and he says that his dentist has already said that he may need to try this too. He has significant improvement of his sleep apnea and is comfortable with CPAP therapy. He plans on continuing with CPAP therapy machine long goods helper. Patient's apnea severity and rationale for treatment to reduce apnea, improve sleep quality and reduce cardiovascular and cerebrovascular events was reviewed. 2. Obesity, unspecified. Currently patients BMI is 52.4. Obesity increases the risk of apnea, CPAP pressure requirements and overall health risks especially cardiovascular and diabetes. Thus patient is advised to lose weight. * Continue auto CPAP pressure at 13-16 cmH2O * Update supply prescription. * Notify me if snoring with mask or feeling that the pressure is too much or too little * Attempt to lose weight * Call this office if any problems using CPAP * Return for follow up in 12 months, or sooner if concerns arise Counseling Topics: Spare mask, Weight loss health impact Prescriptions: Device supplies Follow up with Sleep Care in: 1 year Visit Type: In Office Time Spent with Patient (minutes): 21 Provider Statement: I spent 100% of the Face to Face Visit with the patient with greater than 50% spent counseling the patient and coordination of care.
[2024-04-28 09:02] VITALS: BP 153/98; O2SAT 94
== END 2024-04-28 08:21 | disposition home or self-care (01) ==
LOC: SC 08:20
PROVIDERS: ATTEND Nurse Practitioner Family
DX: G47.33 Obstructive sleep apnea (adult) (pediatric) (principal); E66.01 Morbid (severe) obesity due to excess calories; Z68.43 Body mass index [BMI] 50.0-59.9, adult
CPT/HCPCS: 99212; 99213